=== PATIENT | male | born 1990 | race African-American/Black ===

== ENCOUNTER 2023-06-17 00:40 | Emergency (ER) | payer MEDICAID ==
[~2023-06-17] VITALS: Ht 180.3 cm; Wt 92.6 kg
[2023-06-17 00:50] VITALS: O2SAT 99
[2023-06-17] MEDS ORDERED: TETANUS, DIPHTHERIA, PERTUSSIS VAC/PF 0.5ML (>10YR OLD) IM ONE (02:45)
[2023-06-17] MEDS ORDERED: LIDOCAINE HCL/PF 1% 10 MG/ML 5ML VIAL INFIL ONE (02:45)
[2023-06-17] MEDS ORDERED: BACITRACIN ZINC OINT UDPKT TOP ONE (02:45)
[2023-06-17] MEDS ORDERED: KETOROLAC 30MG/ML VIAL IM ONE (02:45)
[2023-06-17 03:15] VITALS: BP 145/109
[2023-06-17] MEDS ORDERED: BO1 TP (03:18)
[2023-06-17] MEDS ORDERED: NAPR-681 MT (03:38)
[2023-06-17 04:03] VITALS: PULSE 96; RESP 18; TEMP 98.1
== END 2023-06-17 04:08 | disposition home or self-care (01) ==
LOC: ER 00:40
DX: S51.812A Laceration without foreign body of left forearm, initial encounter (principal); W26.9XXA Contact with unspecified sharp object(s), initial encounter; Y93.89 Activity, other specified; Y92.89 Other specified places as the place of occurrence of the external cause; Y99.8 Other external cause status
CPT/HCPCS: 73090; 90715; 12002; 90471; 96372; 99284; J1885; J3490; Z7610 ×2